=== PATIENT | female | born 1995 | race Caucasian/White ===

== ENCOUNTER 2016-05-23 08:30 | Emergency (ER) | payer BC ==
[~2016-05-23] VITALS: Ht 170.2 cm; Wt 54.4 kg
--- NOTE | 2016-05-23 08:57 | PHYS DOC ---
Past Medical History Past Medical History: No Pertinent History Past Surgical History: No Surgical History Alcohol Use: Occasionally Drug Use: None Adult General Chief Complaint Chief Complaint: NAUSEA/VOMITING/DIARRHA HPI HPI Patient is a 21 year old male presents emergency department stating that this is her third urinary tract infection this month. Patient states that she was treated at the first part of the month for urinary tract infection from urgent care she states she did complete all of the medication. She states when she developed signs and symptoms of a urinary tract infection a few weeks ago she was not diagnosed and did not get treated. She states that she is having urinary frequency urgency and pain with urination with no hematuria. She states that she only drinks maybe a half a glass of water a day. Patient denies any fever, chills. She does state however she's been having some nausea feeling. Review of Systems Review of Systems Constitutional: Denies fever or chills [] Eyes: Denies change in visual acuity, redness, or eye pain [] HENT: Denies nasal congestion or sore throat [] Respiratory: Denies cough or shortness of breath [] Cardiovascular: No additional information not addressed in HPI [] GI: Denies abdominal pain, nausea, vomiting, bloody stools or diarrhea [] : dysuria denies hematuria [] Musculoskeletal: Denies back pain or joint pain [] Integument: Denies rash or skin lesions [] Neurologic: Denies headache, focal weakness or sensory changes [] Current Medications Current Medications Current Medications Medications (Trade) Dose Ordered Sig/Romulo Start Time Stop Time Status Last Admin Dose Admin Ondansetron HCl (Zofran Odt) 4 mg 1X ONCE 05/23/16 09:00 05/23/16 09:01 DC Allergies Allergies Allergies Coded Allergies Type Severity Reaction Last Updated Verified No Known Drug Allergies 05/23/16 No Physical Exam Physical Exam Constitutional: Well developed, well nourished, no acute distress, non-toxic appearance. [] HENT: Normocephalic, atraumatic, bilateral external ears normal, oropharynx moist, no oral exudates, nose normal. [] Eyes: PERRLA, EOMI, conjunctiva normal, no discharge. [] Neck: Normal range of motion, no tenderness, supple, no stridor. [] Cardiovascular:Heart rate regular rhythm, no murmur [] Lungs & Thorax: Bilateral breath sounds clear to auscultation [] Abdomen: Bowel sounds normal, soft, no tenderness, no masses, no pulsatile masses. [] Skin: Warm, dry, no erythema, no rash. [] Back: No tenderness, no CVA tenderness. [] Extremities: No tenderness, no cyanosis, no clubbing, ROM intact, no edema. [] Neurologic: Alert and oriented X 3, normal motor function, normal sensory function, no focal deficits noted. [] Psychologic: Affect normal, judgement normal, mood normal. [] Current Patient Data Vital Signs Vital Signs Date Time Temp Pulse Resp B/P Pulse Ox O2 Delivery O2 Flow Rate FiO2 05/23/16 08:46 99.0 91 18 137/92 100 Room Air 99.0 Lab Values Laboratory Tests Test 05/23/16 08:41 Urine Collection Type Void Urine Color Red Urine Clarity Turbid Urine pH 7.0 Urine Specific [place] 1.020 Urine Protein 30mg/dL (NEG-TRACE) Urine Glucose (UA) Negativemg/dL (NEG) Urine Ketones (Stick) Tracemg/dL (NEG) Urine Blood Large (NEG) Urine Nitrite Positive (NEG) Urine Bilirubin Small (NEG) Urine Urobilinogen Dipstick 1.0mg/dL (0.2 mg/dL) Urine Leukocyte Esterase Large (NEG) Urine RBC Tntc/HPF (0-2) Urine WBC >40/HPF (0-4) Urine Squamous Epithelial Cells Occ/LPF Urine Bacteria Few/HPF (0-FEW) Urine Mucus Mod/LPF EKG EKG [] Radiology/Procedures Radiology/Procedures [] Course & Med Decision Making Course & Med Decision Making Pertinent Labs and Imaging studies reviewed. (See chart for details) test was negative. Patient was provided with zofran here in the emergency department. She was provided with PO challenge in which she tolerated well. She will be provided with Cipro for UTI. Recommended plenty of fluids such as water and cranberry. Avoid cranberry juice cocktail, caffeine, carbonated beverages, alcohol and citrus fruits. Followup with primary care provider in 09-07 for repeat urine check to determine if the UTI has cleared. Patient was also recommended to followup with urology. Patient was provided with signs and symptoms to return to emergency department. [] Dragon Disclaimer Dragon Disclaimer This electronic medical record was generated, in whole or in part, using a voice recognition dictation system. Departure Departure Impression: Primary Impression: UTI (urinary tract infection) Disposition: 01 HOME, SELF-CARE Condition: STABLE Referrals: NON,STAFF (PCP) Patient Instructions: Urinary Tract Infection, [id number] Additional Instructions: Activity as tolerated Medication as provided Drink plenty of fluids such as water, and cranberry juice Avoid cranberry juice cocktail, carbonated beverages, caffeine, alcohol, and citrus fruits as these are considered to be irritants to the bladder You may also followup with urology since you have had recurrent urinary tract infections. Followup with a primary care provider in 7-10 days to have your urine rechecked to make sure you have cleared the infection Return to emergency department as needed for signs and symptoms that become worse. Scripts Ciprofloxacin Hcl (Cipro)500 Mg Tablet1 Tab PO BID #[id number] TAB Prov:KENNY NICHOLS APRN 05/23/16 KENNY NICHOLS APRN May 23, 2016 08:57
[2016-05-23] MEDS ORDERED: ONDANSETRON ODT 4 MG TAB.RAPDIS PO ONE (09:00)
[2016-05-23 09:17] LABS: BILIRUBIN,URINE SMALL (NEG); GLUCOSE,URINE NEGATIVE (NEG); NITRITE,URINE POSITIVE (NEG); PROTEIN,URINE 30 mg/dL (NEG-TRACE); RBC,URINE TNTC /HPF (0-2)
[2016-05-23 09:18] LABS: BACTERIA,URINE FEW /HPF (0-FEW); SQUAMOUS EPITHELIAL CELL,UR OCC /LPF; WBC,URINE >40 /HPF (0-4)
[2016-05-23] MEDS ORDERED: CIPR500T94 PO (09:35)
[2016-05-23] MEDS ORDERED: ONDA4TAB10 SL (09:37)
[2016-05-23 09:48] VITALS: BP 120/75
== END 2016-05-23 09:50 | disposition home or self-care (01) ==
LOC: ER 08:30
DX: N39.0 Urinary tract infection, site not specified (principal); R11.2 Nausea with vomiting, unspecified
CPT/HCPCS: 81001; 81025; 87086; 99284; Q0162